=== PATIENT | female | born 1980 | race Caucasian/White ===

== ENCOUNTER 2019-07-05 08:56 | Outpatient (CLI) | payer BC, SELFPAY ==
--- NOTE | 2019-07-05 09:04 | NM_ITS ---
WS: [id number] Nuclear medicine hepatobiliary scan with ejection fraction, 07/05/2019 Clinical Data: GALLBLADDER COLIC Comparison: None. Findings: After the intravenous injection of 7.5 mCi of technetium 99m mebrofenin, multiple anterior gamma camera images of the right upper quadrant were obtained. The parenchymal phase of the liver showed a normal decrease in activity over time. At 15 minutes post injection, there was activity in the gallbladder, intrahepatic ducts and common bi le duct. There is activity in the small bowel noted at 20 minutes Ejection fraction: After the oral administration of 8 ounces of Ensure Plus, the ejection fracture was measured between 1 minute and 65 minutes. It measured 80% which is normal NM/NM hepatobiliary w phar* [id number] Impression: Normal ejection fraction of 80% at 59 minutes. Normal hepatobiliary scan.
== END 2019-07-05 08:57 | disposition home or self-care (01) ==
LOC: RAD 09:01
PROVIDERS: Family Provider Nurse Practitioner Family; PCP Nurse Practitioner Family; Visit Provider Registered Nurse
DX: K80.20 Calculus of gallbladder without cholecystitis without obstruction (principal)
CPT/HCPCS: 78227; A9537

== ENCOUNTER → 2020-02-04 13:47 | Outpatient (BNVA) | payer BC, SELFPAY | PROVIDERS: Family Provider Nurse Practitioner Family; PCP Nurse Practitioner Family; Visit Provider Registered Nurse | DX: L65.9 Nonscarring hair loss, unspecified (principal) | CPT/HCPCS: 84443; 85025 ==

== ENCOUNTER → 2020-04-14 16:10 | Outpatient (BNVA) | payer BC, SELFPAY | PROVIDERS: Family Provider Nurse Practitioner Family; PCP Nurse Practitioner Family; Visit Provider Registered Nurse | DX: Z11.59 Encounter for screening for other viral diseases (principal) | CPT/HCPCS: 87635 ==

== ENCOUNTER → 2020-09-01 15:58 | Outpatient (BNVA) | payer BC, SELFPAY | PROVIDERS: Family Provider Nurse Practitioner Family; PCP Nurse Practitioner Family; Visit Provider Registered Nurse | DX: R10.9 Unspecified abdominal pain (principal) | CPT/HCPCS: 80053; 85025 ==

== ENCOUNTER → 2020-10-09 10:10 | Outpatient (BNVA) | payer BC, SELFPAY | PROVIDERS: Family Provider Nurse Practitioner Family; PCP Registered Nurse; Visit Provider Surgery | DX: Z20.822 Contact with and (suspected) exposure to COVID-19 (principal) | CPT/HCPCS: 87635 ==

== ENCOUNTER 2020-10-13 07:16 | Day surgery (SDC) | payer BC, SELFPAY ==
[2020-10-10 15:43] VITALS: BMI 23.1
--- NOTE | 2020-10-13 07:33 | ANES.PREANE2 ---
Pre-Anesthetic Assessment Pre-Anesthetic Assessment: Height/Weight: Height 1.73 m Weight 68.946 kg Proposed Procedure: Operation Date: 10/13/20 08:45 Proposed Procedures p EGD/colon 20519 K59.00 95237 R10.9(Not Applicable) - Chris Johnson MD s Colonoscopy(Not Applicable) - Chris Johnson MD Was Beta Gisela taken within 24 hours: N/A Was Clonidine taken within 24 hours: N/A Social: Social History: No alcohol and No tobacco Exam: Pre-Anes Outpt Exam: alert, oriented x 3, clear to auscultation bilaterally and regular rate & rhythm Airway: Submandibular: WNL Cervical ROM: WNL MP: 2 Dentition: Full CV/HEM: CV/HEM: Murmur (MVP) Anesthetic Plan: ASA status: 1 Anesthesia: MAC Risk of > 500 ml blood loss (7ml/kg in children): No PFSH Anesthesia PFSH: Social History Smoking and tobacco status: never smoked Second hand smoke exposure: No Alcohol intake: never Adopted: No Lives independently: No Household members: spouse Female Reproductive History: Date of last menstrual period: 09/19/20 Data Anesthesia Cardiac Studies: No Data to Display
[2020-10-13 08:08] VITALS: BP 118/77; PULSE 81; RESP 16; TEMP 37.1; O2SAT 100
[2020-10-13] MEDS: sodium chloride 0.9% 1,000 ML 30 ML IV (08:18)
[2020-10-13 08:21] LABS: OR HCG Qualitative Urine Negative (Negative)
--- NOTE | 2020-10-13 08:36 | W.PM.OPSUD ---
Surgery/Procedure H&P Update DATE OF PROCEDURE: October 13, 2020 DATE H&P PERFORMED: 09/17/20 H&P UPDATE INFORMATION: I have reviewed H&P completed within last 30 days, I have examined patient prior to procedure and No changes to prior documentation PREOP DIAGNOSIS: ABDOMINAL PAIN PRIMARY INDICATION FOR PROCEDURE: The same PLANNED PROCEDURE: Operation Date: 10/13/20 08:45 Proposed Procedures p EGD/colon 01651 K59.00 07753 R10.9(Not Applicable) - Chris Johnson MD s Colonoscopy(Not Applicable) - Chris Johnson MD
[2020-10-13 09:35] VITALS: BP 124/87; PULSE 72; RESP 18; TEMP 36.8; O2SAT 100
--- NOTE | 2020-10-13 09:38 | ANE.PACU2 ---
Inpatient post-anesthesia follow up: Airway intact: Yes Vital signs: Temperature 98.7 F Pulse Rate 81 Respiratory Rate 16 Blood Pressure 118/77 Pulse Oximetry 100 Oxygen Delivery Me thod Room Air Oxygen Flow Rate Fraction of Inspir ed Oxygen Hydration adequate: Yes Nausea and vomiting: No Pain level: 1 Mental status: Baseline
[2020-10-13 09:52] VITALS: BP 115/84; PULSE 81; RESP 18; O2SAT 100
[2020-10-14 14:04] LABS: H. Pylori / CLO Test Negative
== END 2020-10-13 10:15 | disposition home or self-care (01) ==
PROVIDERS: Anesthesiology; PCP Registered Nurse; Visit Provider Surgery
PROC: 0DJ08ZZ Inspection of Upper Intestinal Tract, Via Natural or Artificial Opening Endoscopic (ICD-10-PCS; CPT 43235; principal; 2020-10-13 08:45)
PROC: 0DJD8ZZ Inspection of Lower Intestinal Tract, Via Natural or Artificial Opening Endoscopic (ICD-10-PCS; CPT 45378; 2020-10-13 08:45)
DX: R10.11 Right upper quadrant pain (principal); K29.70 Gastritis, unspecified, without bleeding
CPT/HCPCS: 43239; 45378; 84703; 87077; 88305; 96360; J2704; J7030

== ENCOUNTER 2020-10-17 09:14 | Outpatient (CLI) | payer BC, SELFPAY ==
--- NOTE | 2020-10-17 09:30 | US_ITS ---
WS: [id number] ULTRASOUND ABDOMEN LIMITED CLINICAL INFORMATION: R10.9 - Unspecified abdominal pain COMPARISON: None. FINDINGS: Liver Size: Normal. Craniocaudal length: 15.0 cm. Echogenicity: Normal. Surface nodularity: None. Mass (size and location): None. Bile ducts Intrahepatic ducts: Normal. Common bile duct diameter: 0.3 cm. Gallbladder Normal. Gallstones: None. Gallbladder sludge: None. Gallbladder wall thickening: None. Pericholecystic fluid: None. Sonographic Brandt sign: Absent. Pancreas Normal as visualized. Right kidney: Normal. Hydronephrosis: None. Size: 10.2 cm x 4.6 cm x 4.2 cm. Abdominal aorta and IVC Normal abdominal aorta where visualized. 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 Ascites: None. US/US gall bladder [id number] IMPRESSION: 1. 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 Otherwise normal abdominal ultrasound
== END 2020-10-17 09:15 | disposition home or self-care (01) ==
LOC: US 09:15
PROVIDERS: PCP Registered Nurse; Visit Provider Surgery
DX: R10.9 Unspecified abdominal pain (principal)
CPT/HCPCS: 76705

== ENCOUNTER 2021-01-16 12:50 | Outpatient (CLI) | payer BC, SELFPAY ==
--- NOTE | 2021-01-16 13:04 | CT_ITS ---
WS: [id number] CT scan of the sinuses without IV contrast. Additional two-dimensional coronal and sagittal reconstru ction was performed. 01/16/2021 Clinical Data: J32.9 - Chronic sinusitis, unspecified Comparison: None. DLP: 369.[address] scans at [facility] use at least one of these dose optimization techniques: automat ed exposure control; mA and/or kV adjustment per patient size (includes targeted exams where dose is matched to clinical indication); or iterative reconstruction. Findings: The sinus cavities show no air-fluid levels or bone destruction. There is mucoperiosteal thickening o f the inferior aspect of the right maxillary sinus. The orbits are intact. The nasal bones are unrema rkable. The intraorbital contents show no abnormalities. CT/CT sinus wo con* [id number] Impression: Mucoperiosteal thickening of the right maxillary sinus.
== END 2021-01-16 12:51 | disposition home or self-care (01) ==
LOC: RADWPI 12:53
PROVIDERS: PCP Registered Nurse; Visit Provider Registered Nurse
DX: J32.9 Chronic sinusitis, unspecified (principal)
CPT/HCPCS: 70486